=== PATIENT | female | born 2000 | race Caucasian/White ===

== ENCOUNTER 2024-04-11 09:27 | Inpatient (IN) | payer OTHER ==
[~2024-04-11] VITALS: Ht 160 cm; Wt 109.8 kg
[~2024-04-11 09:27] MED LIST: ADVIL200 M1 PO; AMOXICILLIN500 MG PO; IBUPROFEN600 MG PO; KEFLEX500 MG PO; MULTI VITAMIN1 EACH PO; NAPROSYN500 MG PO; NORCO 5-325 TA1 EACH PO; PENICILLIN V P500 MG PO
[2024-04-14 06:01] VITALS: BP 124/80
[2024-04-14 06:02] LABS: HEMATOCRIT 38.2 % (35.0-50.0); HEMOGLOBIN 12.8 g/dL (12.0-18.0); MCH 29.7 (27-36); MCHC 33.4 g/dl (30-36); MCV 88.9 fl (81-99); RBC 4.3 M/ul (4.3-5.7); RDW 14.4 (10.5-15.0)
[2024-04-14] MEDS ORDERED: ondansetron HCL 4 MG/2 ML VIAL ONE (06:55)
[2024-04-14] MEDS ORDERED: OXYTOCIN 10 UNITS/ML VIAL ONE (06:55)
[2024-04-14] MEDS ORDERED: DEXAMETHASONE SOD PHOS 4 MG/ML VIAL ONE (06:55)
[2024-04-14] MEDS ORDERED: BUPIVACAINE 0.75% IN DEXTROSE 2 ML AMP ONE (06:56)
[2024-04-14] MEDS ORDERED: LIDOCAINE HCL 2% 5 ML SDV ONE (06:56)
[2024-04-14] MEDS ORDERED: MORPHINE SULFATE 1 MG/ML VIAL ONE (06:57)
[2024-04-14] MEDS ORDERED: fentaNYL citrate 100 MCG/2 ML VIAL ONE (06:57)
[2024-04-14] MEDS ORDERED: SOD+POT BICARB/CITRIC ACID 2 EA TABLET.EFF PO SCH (07:00)
[2024-04-14] MEDS ORDERED: IBLOOD GLUCOSE TEST STRIP 1 EA TEST VI PRN (07:00)
[2024-04-14] MEDS ORDERED: LIDOCAINE HCL 1% 5 ML SDV INJ ONE (07:00)
[2024-04-14] MEDS ORDERED: SODIUM CHLORIDE 0.9% 20 ML IV ONE (07:00)
[2024-04-14] MEDS ORDERED: CEFAZOLIN SODIUM 3 GM/30 ML SYR IV SCH (07:00)
[2024-04-14] MEDS ORDERED: ePHEDrine sulfate 50 MG/ML AMP ONE ×2 (07:01→07:34)
[2024-04-14] MEDS ORDERED: dexmedeTOMIDine HCl 200 MCG/2 ML VIAL ONE (07:14)
[2024-04-14] MEDS ORDERED: Ropivacaine HCl 0.5% 30 ML VIAL ONE (07:14)
[2024-04-14] MEDS ORDERED: SODIUM CHLORIDE 0.9% 60 ML IV ONE (07:14)
[2024-04-14 07:18] LABS: ABO A; ANTIBODY SCREEN NEGATIVE; RH POSITIVE
[2024-04-14] MEDS ORDERED: LACTATED RINGER'S 2,000 ML IV PRN (07:30)
[2024-04-14] MEDS ORDERED: LACTATED RINGER'S 1,000 ML IV SCH ×2 (07:30→08:33)
[2024-04-14] MEDS ORDERED: PROCHLORPERAZINE EDISYLATE 10 MG/2 ML VIAL IV PRN (08:30)
[2024-04-14] MEDS ORDERED: OXYCODONE HCL 5 MG TAB PO PRN (08:30)
[2024-04-14] MEDS ORDERED: PROMETHAZINE HCL 25 MG SUPP PR PRN (08:30)
[2024-04-14] MEDS ORDERED: METOCLOPRAMIDE HCL 10 MG/2 ML SDV IV PRN (08:30)
[2024-04-14] MEDS ORDERED: ondansetron HCL 4 MG/2 ML VIAL IV PRN ×2 (08:30→10:45)
[2024-04-14] MEDS ORDERED: bisacodyL 10 MG SUPP PR PRN (08:30)
[2024-04-14] MEDS ORDERED: LIDOCAINE 2% VISCOUS 6 ML SYR TOP ONE (08:30)
[2024-04-14] MEDS ORDERED: PROMETHAZINE HCL 25 MG TAB PO PRN (08:30)
[2024-04-14] MEDS ORDERED: OXYTOCIN/0.9 % SODIUM CHLORIDE 500 ML IV SCH (08:30)
[2024-04-14] MEDS ORDERED: SENNOSIDES/DOCUSATE 1 EA TAB PO SCH (09:00)
[2024-04-14] MEDS ORDERED: LABETALOL HCL 100 MG/20 ML MDV IV PRN ×3 (09:15)
--- NOTE | 2024-04-14 09:36 | NUR ---
04/14/24 0936 ADAM GALLARDO 0871 PT ARRIVED TO PACU IN [facility] ROOM 104. PT WITH BABY IN ROOM. PT BREATHING EQUAL AND UNLABORED. PT ON ROOM AIR. PT HAS IV IN RIGHT HAND THAT IS INFUSING LR WITH 20 OF PITOCIN. ADJUSTED BP CUFF DUE TO HIGH PRESSURES. PT HAS NO PAIN AT THIS TIME. PT REPORTS A SLIGHT AMOUNT OF NAUSEA BUT TOLERABLE. 0853 FUNDAL MASSAGE DONE, SMALL AMOUT OF DRAIANGE NOTED ON PAD. 0857 FUNDAL CHECK DONE, NO DRAINAGE AT THIS TIME. PT REPORTS NO PAIN. ANESTHEISA AWARE OF BLOOD PRESSURES, ANESTHEISA WILL UPDATE DOCTOR ON BLOOD PRESSSURES. PT HAS NO HEADACHES OR DIZZINESS AT THIS TIME. 0859 PT SPINAL LEVEL AT T4. PT REPORTING NO PAIN. PT SITTING UP SLIGHTLY NOW, PT REPORTS NO DIZZINESS. 0905 [facility] RN REPORTS THEY RECEIVED ORDER FROM DOCTOR FOR BLOOD PRESSURE MEDICATIONS FOR BP. [facility] NURSE GIVING THIS PER ORDER. 0907 FUNDLE CHECK DONE, SMALL AMOUNT OF DRAINGE NOTED. JORDI PAD REPLACED. 0920 URINE EMPTIED FROM RAMESH CATH. PT SITTING UPRIGHT IN BED WITH BABY AT BREAST. PT BREATHING EQUAL AND UNLABORED. AT BEDSIDE AND FAMILY. PT REPORTING SLIGHT NAUSEA AT THIS TIME. PT HAS LR WITH 20 OF PITOCIN RUNNING CONTINUOUSLY AT THIS TIME. REPORT GIVEN TO [facility] NURSE SCOOTER. TRANSFER OF CARE DONE AT THIS TIME. PT REPORTING NO PAIN AND SPINAL LEVEL AT T4. PT HAS NO QUESTIONS AT THIS TIME.
[2024-04-14 09:50] VITALS: BP 186/94
[2024-04-14] MEDS ORDERED: MORPHINE SULFATE 4 MG/ML VIAL IV PRN (10:45)
[2024-04-14] MEDS ORDERED: diphenhydrAMINE HCL 50 MG/ML VIAL IV PRN (10:45)
[2024-04-14] MEDS ORDERED: HYDROmorphone HCL 1 MG/ML SYR IV PRN (10:45)
[2024-04-14] MEDS ORDERED: NALOXONE HCL 0.4 MG SYR IV PRN (10:45)
[2024-04-14] MEDS ORDERED: SIMETHICONE 125 MG TABLET CHEWABLE PO SCH (11:00)
[2024-04-14] MEDS ORDERED: ACETAMINOPHEN 500 MG TAB PO SCH (12:00)
[2024-04-14] MEDS ORDERED: KETOROLAC TROMETHAMINE 30 MG/ML VIAL IV SCH (14:00)
[2024-04-15] MEDS ORDERED: LACTATED RINGER'S 1,000 ML IV ONE (01:00)
[2024-04-15 06:09] LABS: MCH 30.3 (27-36); MCHC 34.5 g/dl (30-36); RBC 3.3 M/ul (4.3-5.7); RDW 14.6 (10.5-15.0)
[2024-04-15] MEDS ORDERED: SOD+POT BICARB/CITRIC ACID 2 EA TABLET.EFF PO SCH (07:00)
[2024-04-15] MEDS ORDERED: ENOXAPARIN SODIUM 40 MG/0.4 ML SYR SUB-Q SCH (09:00)
--- NOTE | 2024-04-15 09:46 | PR ---
[facility] [address] [place], [place] [address] Signed PP Progress Notes Datetime Report Generated by CPN: 04/15/2024 09:46 SUBJECTIVE: [id number] Pain: Within Normal Limits Nausea/Vomiting: Denies Flatus: Yes Vital Signs: [id number] Vital Signs: Reviewed; Within Normal Limits EXAM: Ongoing Cardiovascular: Normal Respiratory: Normal Abdomen/Uterus: Abnormal Lochia: Normal Vulva/Perineum: Not Done Breasts: Not Done CVA Tenderness: Not Done Extremities: Normal Incision: Normal Progress: Normal Exam Comments: Abdomen with active BS. Fundus firm, NT @ U-1. H/H 10/29.0, WBC 9.8, plat 167k IMPRESSION/PLAN/PROCEDURES: [id number] Impression: Normal Progression Other Plans: ambulate, shower Procedures: None Progress Notes: Doing well. Will increase ambulation. Possible discharge tomorrow if continues to do well. Signing Physician: Lynda Rosas MD Copies: ~ *Electronically Signed* 04/15/24 0946 LYNDA ROSAS MD PATIENT NAME: KAYCEE ROQUE PROGRESS NOTE DATE OF : 00 PHYSICIAN: LYNDA ROSAS MD RPT #: [id number] REPORT IS CONFIDENTIAL AND NOT TO BE RELEASED WITHOUT AUTHORIZATION
--- NOTE | 2024-04-15 10:08 | OR ---
[facility] [address] [place], [place] [address] Signed DATE OF OPERATION: 04/14/2024 SURGEON: Lynda Rosas MD TIE TAPE MACHINE OPERATOR: MAREK Aceves DO PREOPERATIVE DIAGNOSIS: Term , breech presentation. POSTOPERATIVE DIAGNOSIS: Term , breech presentation, delivered. PROCEDURE: Primary section with low segment transverse uterine incision. ANESTHESIA: Spinal. ESTIMATED BLOOD LOSS: 500 mL. DRAINS: Hardy catheter. INDICATIONS AND FINDINGS: The patient is a 24-year-old female 1, para 0, admitted at 39 and 1/7th weeks for primary section for breech presentation. She declined version. Breech was confirmed prior to surgery. She was taken to the operating room where she was delivered of a little girl via lower segment transverse uterine incision as a daysi breech, right sacrum anterior with Apgars of 8 and 8 and a weight of 7 pounds 7 ounces. There was nuchal cord x2 which was tight. The uterus, tubes, ovaries, and placenta appeared normal. DESCRIPTION OF PROCEDURE: The patient was prepped and draped in the supine position. A Pfannenstiel skin incision was made and carried down through the fascia. The incision was extended laterally. The inferior and superior fascial flaps were then created. The muscles were bluntly divided and the peritoneum entered bluntly and the incision extended bluntly. The Sai retractor was then placed. The uterine incision was made at the upper aspect of the Electronically Signed By: LYNDA ROSAS MD 04/15/24 1008 PATIENT NAME: KAYCEE ROQUE OPERATIVE REPORT DATE OF : 00 REPORT #: [id number] PHYSICIAN: LYNDA ROSAS MD PCP: NABIL RUSSO MD REPORT IS CONFIDENTIAL AND NOT TO BE RELEASED WITHOUT AUTHORIZATION [facility] [address] [place] [id number] Signed peritoneal reflection. Clear fluid was noted on entry. The incision was extended bluntly and the baby delivered with the above findings and handed off to the pediatric staff in attendance. The placenta was expressed and the uterus explored with a lap tape assuring no remaining fragments. The edges of the incision were identified. The uterus was closed in 2 layers using 0 Monocryl. The first layer was a running locking stitch and the second was a vertical imbricating stitch. An additional stitch was required near the right angle for control of bleeding. The abdomen was irrigated, inspected and bleeding points were controlled on the peritoneal edges. The retractor was removed. The peritoneum identified and the peritoneum was closed with a running suture of 3-0 Vicryl. The muscles were brought together in the midline with interrupted sutures of 0 Vicryl. Bleeding points were controlled on the muscle. This layer was irrigated, inspected and good hemostasis was noted. The fascia was then closed from each angle to the midline with a running suture of 0 Vicryl. The subcu was reapproximated with interrupted sutures of 3-0 Vicryl after assuring hemostasis. Skin incision was closed with a Quill suture placed subcuticularly. Dermabond Prineo dressing was then placed. All sponge and needle counts were correct. She tolerated the procedure well and was taken to the recovery room in good condition. Lynda Rosas MD PJW/MODL /[id number] Copies: ~ Electronically Signed By: LYNDA ROSAS MD 04/15/24 1008 PATIENT NAME: KAYCEE ROQUE OPERATIVE REPORT DATE OF : 00 REPORT #: [id number] PHYSICIAN: LYNDA ROSAS MD PCP: NABIL RUSSO MD REPORT IS CONFIDENTIAL AND NOT TO BE RELEASED WITHOUT AUTHORIZATION
[2024-04-15] MEDS ORDERED: IBUPROFEN 800 MG TAB PO SCH (16:00)
--- NOTE | 2024-04-16 08:56 | PR ---
[facility] [address] [facility] [address] [place] [address] Signed PP Progress Notes Datetime Report Generated by CPN: 04/16/2024 08:56 SUBJECTIVE: [id number] Pain: Within Normal Limits Nausea/Vomiting: Denies Flatus: Yes Vital Signs: [id number] Vital Signs: Reviewed; Within Normal Limits EXAM: Ongoing Cardiovascular: Not Done Respiratory: Not Done Abdomen/Uterus: Abnormal Lochia: Normal Vulva/Perineum: Not Done Breasts: Not Done CVA Tenderness: Not Done Extremities: Normal Incision: Normal Progress: Normal Exam Comments: Fundus firm, NT @ U-1. IMPRESSION/PLAN/PROCEDURES: [id number] Impression: Normal Progression Other Impression: Depression/anxiety Plan: Discharge Other Plans: ambulate, shower Procedures: None Progress Notes: Physically doing well but moods are not good. She has a hx of anxiety and elected NOT to take the sertraline previously prescribed. I do think it essential she restart this medication and I feel this is safe for . She is amenable to this. She is otherwise ready for D/C. Signing Physician: Lynda Rosas MD Copies: ~ *Electronically Signed* 04/16/24 0856 LYNDA ROSAS MD PATIENT NAME: KAYCEE ROQUE PROGRESS NOTE DATE OF : 00 PHYSICIAN: LYNDA ROSAS MD RPT #: [id number] REPORT IS CONFIDENTIAL AND NOT TO BE RELEASED WITHOUT AUTHORIZATION
== END 2024-04-16 13:42 | disposition home or self-care (01) | DRG 788 ==
LOC: FBC 04-14 05:05
PROVIDERS: ADMIT Obstetrics & Gynecology; ATTEND Obstetrics & Gynecology
PROC: 10D00Z1 Extraction of Products of Conception, Low, Open Approach (ICD-10-PCS; principal; 2024-04-14 07:30)
DX: O32.1XX0 Maternal care for breech presentation, not applicable or unspecified (principal); Z3A.39 39 weeks gestation of pregnancy; Z37.0 Single live birth; O99.344 Other mental disorders complicating childbirth; F41.9 Anxiety disorder, unspecified; F32.A Depression, unspecified; Z88.2 Allergy status to sulfonamides; Z88.8 Allergy status to other drugs, medicaments and biological substances; O69.81X0 Labor and delivery complicated by cord around neck, without compression, not applicable or unspecified; O99.214 Obesity complicating childbirth
CPT/HCPCS: 01961; 36415; 76942; 85027; 86850; 86900; 86901; A9270; J0690; J1100; J1650; J1885; J2001; J2274; J2405; J2590; J2795; J3010; J7121

== ENCOUNTER 2025-02-02 11:59 | Emergency (ER) | payer OTHER ==
[~2025-02-02] VITALS: Ht 152.4 cm; Wt 94.8 kg
[2025-02-02] MEDS ORDERED: SERTRALINE HCL100 MG PO (12:13)
[2025-02-02 12:20] LABS: BASOPHILS 0.4 % (0.1-1.2); EOSINOPHILS 0.5 % (0.7-5.8); LYMPHOCYTES 13.2 % (19.3-51.7); MCH 29.1 PG (25.6-32.2); MCHC 32.3 g/dL (32.2-35.5); MCV 90.0 fL (79.4-94.8); MONOCYTES 4.2 % (4.7-12.5); NEUTROPHILS 81.3 % (34.0-71.1); RBC 4.71 M/uL (3.93-5.22)
[2025-02-02] MEDS ORDERED: HYDROmorphone HCL 1 MG/ML SYR IV PRN (12:30)
[2025-02-02 12:37] LABS: ALT (SGPT) 32.0 U/L (14-59); AST (SGOT) 13.0 U/L (15-37); GLOMERULAR FILTRATION RATE,EST 105.0 mL/min (>60); PROTEIN, TOTAL 8.3 g/dL (6.4-8.2); UREA NITROGEN 18.0 mg/dL (7-18)
[2025-02-02 14:10] LABS: BLOOD/HGB, URINE NEGATIVE (Negative); KETONE, URINE NEGATIVE (Negative); LEUK ESTERASE, URINE NEGATIVE (negative); NITRITE, URINE NEGATIVE (negative)
[2025-02-02 17:35] VITALS: BP 118/77
[2025-02-02] MEDS ORDERED: HYDROCODON-ACE1 EA10 PO (17:38)
== END 2025-02-02 17:45 | disposition home or self-care (01) ==
LOC: ED 11:59
PROVIDERS: Emergency Medicine
DX: R10.11 Right upper quadrant pain (principal); R10.31 Right lower quadrant pain; Z79.899 Other long term (current) drug therapy; Z88.1 Allergy status to other antibiotic agents
CPT/HCPCS: 36415; 74177; 76705; 80053; 81003; 83690; 84703; 85025; 96374; 96375; 99284-25; J1171; J2405; Q9967